=== PATIENT | female | born 1995 | race Caucasian/White ===

== ENCOUNTER 2017-11-18 23:32 | Emergency (ER) | payer OTHER, BC ==
[2017-11-18 23:43] VITALS: BP 106/70; PULSE 90; RESP 16; TEMP 97
[2017-11-18] MEDS ORDERED: RX INFO: IV CONTRAST WAS GIVEN 1 EACH MISC MISCELLANE PRN (23:58)
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
[2017-11-19 00:08] LABS: Glucose,Whole Blood 106 mg/dL (75-99)
[2017-11-19 00:17] LABS: Basophils # (A) 0.1 k/uL (0-0.2); Basophils % (A) 1 %; Eosinophils # (A) 0.1 k/uL (0-0.7); Eosinophils % (A) 1 %; HCT 41.4 % (34.0-46.0); HGB 13.6 gm/dL (11.4-16.0); Lymphocytes # (A) 2.3 k/uL (1.0-4.8); Lymphocytes % (A) 20 %; MCH 30.3 pg (25.0-35.0); MCHC 32.7 g/dL (31.0-37.0); MCV 92.7 fL (80.0-100.0); Mean Platelet Volume 7.4; Monocytes # (A) 0.4 k/uL (0-1.0); Monocytes % (A) 4 %; Neutrophils # (A) 8.8 k/uL (1.3-7.7); Neutrophils % (A) 74 %; Platelet Count 353 k/uL (150-450); RBC 4.47 m/uL (3.80-5.40); RDW 13.7 % (11.5-15.5); WBC 11.9 k/uL (3.8-10.6)
[2017-11-19 00:30] LABS: ALT 27 U/L (9-52); AST 19 U/L (14-36); Albumin 4.7 g/dL (3.5-5.0); Alcohol <10 mg/dL; Alkaline Phosphatase 60 U/L (38-126); Amylase 67 U/L (30-110); Anion Gap 14 mmol/L; Blood Urea Nitrogen 7 mg/dL (7-17); Calcium 9.6 mg/dL (8.4-10.2); Carbon Dioxide 25 mmol/L (22-30); Chloride 105 mmol/L (98-107); Glucose 100 mg/dL (74-99); Lipase 115 U/L (23-300); Sodium 144 mmol/L (137-145); Total Bilirubin 0.3 mg/dL (0.2-1.3); Total Protein 7.9 g/dL (6.3-8.2)
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
--- NOTE | 2017-11-19 00:34 | XR ---
EXAMINATION TYPE: XR pelvis AP view DATE OF EXAM: 11/19/2017 COMPARISON: NONE HISTORY: Pain TECHNIQUE: Single view FINDINGS: Pelvic ring is intact. Proximal femurs and hip joints appear normal. Sacroiliac joints appe ar normal. IMPRESSION: Normal pelvis
[2017-11-19 00:36] LABS: INR 1.1 (<1.2); Partial Thromboplastin Time 24.2 sec (22.0-30.0); Prothrombin Time 10.4 sec (9.0-12.0)
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
[2017-11-19 00:37] LABS: Creatine Kinase 83 U/L (30-135)
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
[2017-11-19 00:50] LABS: Creatine Kinase MB 0.7 ng/mL (0.0-2.4); Troponin I <0.012 ng/mL (0.000-0.034)
[2017-11-19] MEDS: ACETAMINOPHEN TAB 325 MG TAB PO STA ×2 (01:07→01:09)
== END 2017-11-19 01:06 | disposition home or self-care (01) ==
LOC: EC 23:32
DX: S00.81XA Abrasion of other part of head, initial encounter (principal); Z88.8 Allergy status to other drugs, medicaments and biological substances; V47.5XXA Car driver injured in collision with fixed or stationary object in traffic accident, initial encounter; Y92.410 Unspecified street and highway as the place of occurrence of the external cause
CPT/HCPCS: 99284 ×2; 36415; 93005; 86900; 86901; 80053; 82150; 82550; 82553; 83690; 84484; 85025; 85610; 85730; 86850; 80320; 72170; 71045; 72125; 70450; 71260; 74177; L0120

== ENCOUNTER → 2018-07-28 | Outpatient (CLI) | payer BC ==
--- NOTE | 2018-07-28 22:43 | CT ---
EXAMINATION TYPE: CT pelvis wo/w con DATE OF EXAM: 07/28/2018 COMPARISON: Prior CT chest abdomen and pelvis November 19, 2017. HISTORY: Right inguinal hernia and pain. CT DLP: 374.7 mGycm Automated exposure control for dose reduction was used. CONTRAST: Performed with oral and without and with IV Contrast, patient injected with 100ml mL of Isovue M300. FINDINGS: There is no suspicious fat or bowel-containing inguinal hernia bilaterally. There are benign-appearin g subcentimeter lymph nodes in the groin bilaterally. No suspicious greater than 1 cm groin adenopath y is present. Heterogeneous anteverted uterus is seen. Both ovaries are seen and normal in size. Within the left ov jerry there is 2.4 cm oval low-density lesion likely reflecting prominent follicle or simple small ovar kerline cyst. No free fluid is seen in pelvic cul-de-sac. The oral contrast does not reach level of the sigmoid colon. There is no suspicious small or large nikkie wel dilatation. There are slightly low-lying cecum into the right pelvis. Normal contrast filled appe ndix is seen extending from cecum medially. Persistent disc herniations L4-L5 is noted sagittal image 29 and confirmed the axial image 1 series 4 effacing the anterior thecal sac. IMPRESSION: No suspicious bowel or fat-containing inguinal hernia. No new or acute finding identified to account for patient's symptoms.
== END | disposition home or self-care (01) ==
LOC: RADCTMAIN 17:19
PROVIDERS: ATTEND Family Medicine
DX: K40.90 Unilateral inguinal hernia, without obstruction or gangrene, not specified as recurrent (principal)
CPT/HCPCS: 72194; Q9967

== ENCOUNTER → 2023-04-16 | Outpatient (CLI) | payer BC ==
--- NOTE | 2023-04-17 09:00 | CT ---
EXAMINATION TYPE: CT abdomen pelvis w con DATE OF EXAM: 04/16/2023 COMPARISON: 07/28/2018, 11/19/2017 HISTORY: Rt side abdomen pain, constipation and vomiting. Hx of hernia removal on rt side. CT DLP: 407.2 mGycm Automated exposure control for dose reduction was used. CONTRAST: CT scan of the abdomen pelvis is performed with IV Contrast, patient injected with 100 ml mL of Isovu e 300. FINDINGS- LUNG BASES- No significant abnormality is appreciated. LIVER/GB- No gross abnormality is appreciated. PANCREAS- No gross abnormality is seen. SPLEEN- No gross abnormality is seen. ADRENALS- No gross abnormality is seen. KIDNEYS/BLADDER- no hydronephrosis nephrolithiasis or renal mass. BOWEL- nonspecific LYMPH NODES- No greater than 1cm abdominal or pelvic lymph nodes are appreciated. OSSEOUS STRUCTURES- No significant abnormality is seen. OTHER- there is marked irregularity and reduced enhancement involving the cervical portion of the ut erus. Cannot exclude a neoplastic process. There is marked prominence of the endometrium Additionally within the left pelvis and in the bladder is a 5 cm cystic lesion of the ovary. Recommend further ev aluation with ultrasound. Bicornuate or uterus in the differential diagnosis IMPRESSION- 1. There is marked heterogeneity and reduced enhancement in the lower uterine segment which is new fr om prior exam. Recommend pelvic ultrasound to assess uterine lesion\abnormality. Additionally, suspec t congenital bicornuate uterus. 2. Large 5 cm cystic lesion indenting the lateral anterior margin of left bladder may be ovarian in e tiology. Pelvic ultrasound recommended. Report was called to referring clinician at 8:54 AM 04/17/2023 .
== END | disposition home or self-care (01) ==
LOC: RADCTMAIN 16:46
PROVIDERS: ATTEND Family Medicine
DX: N32.89 Other specified disorders of bladder (principal); R10.11 Right upper quadrant pain
CPT/HCPCS: 74177; Q9967

== ENCOUNTER → 2023-04-17 | Outpatient (CLI) | payer BC ==
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
== END | disposition home or self-care (01) ==
LOC: RADUSWWP 13:32
PROVIDERS: ATTEND Family Medicine
DX: R19.00 Intra-abdominal and pelvic swelling, mass and lump, unspecified site (principal)
CPT/HCPCS: 76856

== ENCOUNTER → 2023-07-03 | Outpatient (CLI) | payer BC ==
[2023-07-03 20:36] LABS: Basophils # (A) 0.06 X 10*3/uL (0.00-0.10); Basophils % (A) 1.1 %; Eosinophils # (A) 0.07 X 10*3/uL (0.04-0.35); Eosinophils % (A) 1.3 %; HCT 37.1 % (37.2-46.3); HGB 12.2 d/dL (12.0-15.0); Lymphocytes # (A) 1.71 X 10*3/uL (0.90-5.00); MCH 30.8 pg (27.0-32.0); MCHC 32.9 d/dL (32.0-37.0); MCV 93.7 FL (80.0-97.0); Mean Platelet Volume 10.3 FL (9.5-12.2); Monocytes # (A) 0.38 X 10*3/uL (0.20-1.00); Monocytes % (A) 7.1 %; NRBC Per 100 WBC 0 X 10*3/uL (0.00-0.01); Neutrophils # (A) 3.11 X 10*3/uL (1.80-7.70); Neutrophils % (A) 58.3 %; Platelet Count 266 X 10*3/uL (140-440); RBC 3.96 X 10*6/uL (4.10-5.20); RDW 12.1 % (11.5-14.5); WBC 5.34 X 10*3/uL (4.50-10.00)
== END | disposition home or self-care (01) ==
LOC: LABPAT 13:54
PROVIDERS: ATTEND Obstetrics & Gynecology
DX: Z01.812 Encounter for preprocedural laboratory examination (principal); N83.299 Other ovarian cyst, unspecified side; R10.2 Pelvic and perineal pain
CPT/HCPCS: 85025

== ENCOUNTER → 2023-07-03 | Outpatient (CLI) | payer BC | END | disposition home or self-care (01) | LOC: LABWHC1 13:17 | PROVIDERS: ATTEND Obstetrics & Gynecology | DX: Z53.9 Procedure and treatment not carried out, unspecified reason (principal) ==

== ENCOUNTER → 2023-12-16 | Outpatient (CLI) | payer BC ==
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
== END | disposition home or self-care (01) ==
LOC: RADUSWWP 13:13
PROVIDERS: ATTEND Family Medicine
DX: M79.661 Pain in right lower leg (principal)